=== PATIENT | female | born 1925 ===

== ENCOUNTER 2016-09-24 10:27 | Inpatient (IN) | payer MEDICARE, MEDICAID ==
[2016-09-24 11:38] LABS: BASO % 0.4 % (0.0-2.0); EOS # 0.1 K/uL (0.0-0.7); EOS % 0.5 % (0.0-4.0); HEMATOCRIT 35.9 % (34.0-47.0); LYMPH # 1.2 K/uL (1.0-4.3); LYMPH % 11.3 % (20.0-40.0); MEAN CELL VOLUME 89.2 fl (81.0-99.0); MEAN CORPUSCULAR HEMOGLOBIN 29.4 pg (27.0-31.0); MEAN CORPUSCULAR HGB CONC 32.9 g/dL (33.0-37.0); MONO # 0.5 K/uL (0.0-0.8); MONO % 5.1 % (0.0-10.0); NEUT # 8.8 K/uL (1.8-7.0); NEUT % 82.7 % (50.0-75.0); RED CELL DISTRIBUTION WIDTH 14.8 % (11.5-14.5); WHITE BLOOD COUNT 10.7 K/uL (4.8-10.8)
[2016-09-24 11:45] LABS: VENOUS BLOOD GAS BASE EXCESS 4.3 mmol/L (0.0-2.0); VENOUS BLOOD GAS PCO2 59 mmHg (40-60); VENOUS BLOOD PH 7.34 (7.32-7.43)
--- NOTE | 2016-09-24 11:48 | ED PDOC ---
HPI: General Adult Time Seen by Provider: 09/24/16 10:57 Chief Complaint (Nursing): Abnormal Skin Integrity Chief Complaint (Provider): Boil on Right Buttock History Per: Patient History/Exam Limitations: no limitations Onset/Duration Of Symptoms: Days (10 days) Have you had recent travel within the past 21 days to any of the following countries: [place], [place], [place] or [place]?: No Current Symptoms Are (Timing): Still Present Additional Complaint(s): Kizzy Cervantes, an 89 year old female, presents to the ED for a boil on her right buttock x10 days. The patient states that the pain has gotten worse and the boil itself has gotten bigger. Her family states that she has been dizzy over the last few days and her blood pressure was low. Because of this this the patient was taken to see her retread builder, who reduced the dosage of her blood pressure medication. Denies fever, diarrhea, vomiting. PMD: Speech Clinician: Dr. Diaz Past Medical History Reviewed: Historical Data, Nursing Documentation, Vital Signs Vital Signs: Last Vital Signs Temp 99.1 F 09/24/16 15:34 Pulse 81 09/24/16 15:34 Resp 18 09/24/16 15:34 BP 140/61 09/24/16 15:34 Pulse Ox 100 09/24/16 15:34 - Medical History PMH: Cardia Arrhythmia (pacemaker), Diabetes, Gastritis, HTN, Hyperlipidemia, Hyperthyroidism - Surgical History Surgical History: Appendectomy, Pacemaker (lt.) - Family History Family History: States: Unknown Family Hx - Immunization History Hx Tetanus Toxoid Vaccination: No Hx Influenza Vaccination: No Hx Pneumococcal Vaccination: No - Home Medications Home Medications: Ambulatory Orders Medication Instructions Recorded Ferrous Sulfate [Ferosul] 325 mg PO SUTUTHSA 09/24/16 Insulin Glargine, Recombina 30 unit SC HS 09/24/16 [Lantus] Multivitamin [Multi-Vitamin Daily] 1 tab PO DAILY 09/24/16 SITagliptin [Januvia] 100 mg PO DAILY 09/24/16 Simvastatin [Zocor] 20 mg PO DAILY 09/24/16 Valsartan/Hydrochlorothiazide 1 tab PO DAILY 09/24/16 [Valsartan-Hctz 80-12.5 mg Tab] Zaleplon [Sonata] 5 mg PO HS PRN 09/24/16 glyBURIDE [Micronase] 5 mg PO BID 09/24/16 - Allergies Allergies/Adverse Reactions: Allergies Allergy/AdvReac Type Severity Reaction Status Date / Time Penicillins Allergy RASH Verified 09/24/16 10:48 Review of Systems Constitutional: Negative for: Fever Gastrointestinal: Negative for: Vomiting, Diarrhea Skin: Positive for: Other (painful boil on right buttock.) Physical Exam - Reviewed Nursing Documentation Reviewed: Yes Vital Signs Reviewed: Yes - Physical Exam Appears: Positive for: Non-toxic, No Acute Distress Head Exam: Positive for: ATRAUMATIC, NORMOCEPHALIC Skin: Positive for: Normal Color, Warm, Dry Eye Exam: Positive for: Normal appearance, EOMI, PERRL ENT: Positive for: Normal ENT Inspection Neck: Positive for: Normal, Painless ROM, Supple Cardiovascular/Chest: Positive for: Regular Rate, Rhythm, Chest Non Tender. Negative for: Tachycardia Respiratory: Positive for: Normal Breath Sounds. Negative for: Wheezing, Respiratory Distress Gastrointestinal/Abdominal: Positive for: Normal Exam, Bowel Sounds, Soft. Negative for: Tenderness, Guarding, Rebound Back: Positive for: Other (Swelling and Induration to right buttock; 10m boil with opening in the center that is draining purulent discharge.). Negative for : Normal Inspection (Right buttock is warm and tender to palpation.) Neurologic/Psych: Positive for: Alert, Oriented, Gait - Laboratory Results Result Diagrams: 09/24/16 11:30 09/24/16 11:30 - ECG O2 Sat by Pulse Oximetry: 99 (RA) Pulse Ox Interpretation: Normal Medical Decision Making Medical Decision Makin:57 Initial impression: 89 year old female presenting with abscess with cellulitis of right buttock and dizziness secondary to hypotension Initial Plan: * Venous Blood Gas * Comp metabolic Panel * CBC * Partial Thromboplstin * Prothrombin time * Blood culture * wound culture * Reevaluation * clindamycin 600 mg IV 11:40 Plan also includes IND of the abscess as well as IV antibiotics. Patient will also be admitted to hospital for IV antibiotics. [address] Powell who requests Dr Torres on consult. Scribe Attestation Documented by Cherri Elias acting as a scribe for Mago Graham MD. Provider Attestation: All medical record entries made by the Scribe were at my direction and personally dictated by me. I have reviewed the chart and agree that the record accurately reflects my personal performance of the history, physical exam, medical decision making, and the department course for this patient. I have also personally directed, reviewed, and agree with the discharge instructions and disposition. Disposition - Clinical Impression Clinical Impression: Cellulitis and abscess of buttock, Hyperglycemia due to type 2 diabetes mellitus, Dizziness - Patient ED Disposition Is Patient to be Admitted: Yes Discussed With : Isael Magana Doctor Will See Patient In The: ED Counseled Patient/Family Regarding: Studies Performed, Diagnosis - Disposition Disposition Time: 13:00 Condition: FAIR - Pt Status Changed To: Hospital Disposition Of: Observation - POA Present On Arrival: Poor Glycemic Control
[2016-09-24 11:51] LABS: BILIRUBIN,TOTAL 0.7 mg/dl (0.2-1.3)
[2016-09-24 11:52] LABS: ALB/GLOB RATIO 0.7 (1.0-2.1); CALCIUM 9.9 mg/dL (8.4-10.2); TOTAL PROTEIN 8.9 G/DL (6.3-8.2)
[2016-09-24 11:54] LABS: PARTIAL THROMBOPLASTIN TIME 28.4 Seconds (25.6-37.1)
[2016-09-24] MEDS ORDERED: Clindamycin 600 MG in Sodium Chloride 0.9% 100 ML IVPB STA (11:59)
[2016-09-24] MEDS ORDERED: Sodium Chloride 0.9% 1,000 ML IV STA (12:00)
[2016-09-24] MEDS ORDERED: Insulin Regular 100 units/ml IV STA ×2 (12:00→14:58)
[2016-09-24] MEDS ORDERED: Insulin Regular 100 units/ml ONE ×2 (12:33→15:16)
[2016-09-24] MEDS ORDERED: Lidocaine 1% Inj (20ml) ONE (13:24)
[2016-09-24] MEDS ORDERED: Lidocaine 1% Inj (20ml) IJ ONE (13:30)
[2016-09-24] MEDS ORDERED: Vancomycin 1 g Inj ONE (15:29)
--- NOTE | 2016-09-24 15:31 | CP.PCM.HP ---
History of Present Illness - History of Present Illness History of Present Illness: 89 YO w/ PMH of RI x 3 in 2004, DM II, HTN presents to the ER for pain and swelling in her right gluteal region. It started 10 days ago and has progressivly getting worse to the point that she has trouble sleeping on the area. For the last day or two she started feeling dizzy and when the family checked her blood pressure they said it was low 90/50 while sitting. Denies any falls or trauma to head. Dr. Diaz is her psychological assistant and her dose was recently decreased from Valsartan 320 to 80. She has been compliant w/ all her medications. Denies any fever, chills, nausea, vomiting, chest pain or SOB. Patient denies any previous history of similar swellings or skin abnormalities. - Attempted to drain abscess at bedside w/ Dr. Graham using sterile technique , with chaparone in room. Abscess is quite large w/ induration extending close to rectum, was not able to adequately drain do to pt's pain level despite doing procedure after morphine and local anesthesia w/ lidocaine. Surgery consult has been placed PMH: HTN, HLD, RI x 3 in 2004 w/ pacemaker placement PSH: Cath in 2004 and pacemaker placement Allergy: Penicillin Medicine: Valsartan/HTZ 80/12.5, Glyburide 5 mg BID, Lantus 10 30 units daily, Junuvia 100mg daily. F/H: unknown Metallurgy Teacher: Dr. Diaz PMD: Lindsay Present on Admission - Present on Admission Any Indicators Present on Admission: No Review of Systems - Review of Systems All systems: reviewed and no additional remarkable complaints except Past Patient History - Past Social History Smoking Status: Never Smoked - CARDIAC Hx Cardia Arrhythmia: Yes (pacemaker) Hx Hypertension: Yes Hx Pacemaker: Yes (lt.) - ENDOCRINE/METABOLIC Hx Hyperthyroidism: Yes - GASTROINTESTINAL Hx Gastritis: Yes - PSYCHIATRIC Hx Substance Use: No - SURGICAL HISTORY Hx Appendectomy: Yes - ANESTHESIA Hx Anesthesia: Yes Hx Anesthesia Reactions: No Meds Allergies/Adverse Reactions: Allergies Allergy/AdvReac Type Severity Reaction Status Date / Time Penicillins Allergy RASH Verified 09/24/16 10:48 Physical Exam - Constitutional Appears: No Acute Distress - Head Exam Head Exam: NORMAL INSPECTION, NORMOCEPHALIC - Eye Exam Eye Exam: EOMI, Normal appearance Pupil Exam: NORMAL ACCOMODATION, PERRL - ENT Exam ENT Exam: Mucous Membranes Moist - Respiratory Exam Respiratory Exam: Clear to Auscultation Bilateral, NORMAL BREATHING PATTERN. absent: Rales, Rhonchi, Wheezes - Cardiovascular Exam Cardiovascular Exam: REGULAR RHYTHM, +S1, +S2 - GI/Abdominal Exam GI & Abdominal Exam: Normal Bowel Sounds, Soft. absent: Tenderness - Extremities Exam Extremities exam: Positive for: normal inspection. Negative for: calf tenderness - Neurological Exam Neurological exam: Alert, Oriented x3 - Psychiatric Exam Psychiatric exam: Normal Affect, Normal Mood - Skin Additional comments: Swelling and induration on the right butock, 10 cm in size w/ induration extending close to the rectum, draining purulent discharge. Tender on palpation Results - Vital Signs Recent Vital Signs: Last Vital Signs Temp 98.8 F 09/24/16 10:33 Pulse 88 09/24/16 13:52 Resp 18 09/24/16 10:33 BP 123/84 09/24/16 13:52 Pulse Ox 99 09/24/16 11:57 - Labs Result Diagrams: 09/24/16 11:30 09/24/16 11:30 Assessment & Plan - Assessment and Plan (Free Text) Assessment: 89 YO F/ W/ h/o DM II, HTN presents to the ER w/ abscess of the right buttock and dizziness secondary to hypertension 1) Abscess and cellulitis of right buttock - Attempted to drain at bedside in ER, but do to the pain unable to continue. Surgery has been consulted. - CBC, CMP, VBG - PT/PTT - Blood Culture - Wound culture - Clindamycin 600 mg IVPB stat - Vancomycin 1gm IVPB 2) Dizziness ( currently resolved) - IV fluids - Monitor Blood pressure 3) DM II insulin dependent - Glyburide 5mg BID, Levimir 10 unit SCHS, Junuvia 100mg Daily - Currently on insulin sliding scale - Hypoglycemia protocol in place 4) HTN - Valsartan/HTZ 80/125 ( Hold currently) 5) prophlaxis - SCD, Lovenox 30 SC - Pantoprazole -
[2016-09-24] MEDS ORDERED: Dextrose 50% SYRINGE Inj (50 ml) IV PRN (16:25)
[2016-09-24] MEDS ORDERED: Glucagon Recombinant 1 mg Inj IM PRN (16:25)
[2016-09-24] MEDS ORDERED: Oxycodone/Acetaminophen 5/325 mg Tab PO PRN (16:40)
[2016-09-24] MEDS ORDERED: Sodium Chloride 0.9% 1,000 ML IV SCH (16:45)
--- NOTE | 2016-09-24 17:29 | CP.PCM.CON ---
<Abbey Barahona - Last Filed: 09/24/16 17:23> History of Present Illness - History of Present Illness History of Present Illness: General Surgery consult note for Dr. Jackson Consulted for: Gluteal abscess Patient is an 89 y/o Female with PMH of IDDM, CAD with MIx3 and pacemaker, and HTN who presented to the ER for pain and swelling in her left gluteal area for 1 week duration. Patient's daughter said that patient initially refused to come the hospital but did not get better so they brought her in. Patient denies any fevers, chills, diarrhea, constipation, melena, hematochezia, nausea, vomiting, or any other symptoms. The ER physician performed a bedside I&D but patient did not tolerate a full exploration and so it is inadequately drained at this time. This is the patient's first episode like this. Patient's glucose was >500 on presentation, indicating her diabetes is poorly controlled. afebrile, non-tachycardic WBC: wnl PMH: IDDM, CAD with MIx3, pacemaker, HTN PSH: pacemaker, cardiac cath 2004 All: PCN Review of Systems - Review of Systems All systems: reviewed and no additional remarkable complaints except (as per HPI ) - Constitutional Constitutional: absent: Chills, Fever - Cardiovascular Cardiovascular: absent: Chest Pain, Chest Pain at Rest, Dyspnea - Respiratory Respiratory: absent: Cough, Dyspnea - Gastrointestinal Gastrointestinal: absent: Abdominal Pain, Melena, Nausea, Vomiting - Integumentary Integumentary: Erythema, New Lesions, Skin Pain, Swelling Past Patient History - Past Medical History & Family History Past Medical History?: Yes - Past Social History Smoking Status: Never Smoked - CARDIAC Hx Cardia Arrhythmia: Yes (pacemaker) Hx Hypertension: Yes Hx Pacemaker: Yes (lt.) - PULMONARY Hx Respiratory Disorders: No - NEUROLOGICAL Hx Neurological Disorder: No - HEENT Hx HEENT Problems: No - RENAL Hx Chronic Kidney Disease: No - ENDOCRINE/METABOLIC Hx Hyperthyroidism: Yes - HEMATOLOGICAL/ONCOLOGICAL Hx Blood Disorders: No - INTEGUMENTARY Hx Dermatological Problems: No - MUSCULOSKELETAL/RHEUMATOLOGICAL Hx Musculoskeletal Disorders: No - GASTROINTESTINAL Hx Gastritis: Yes - GENITOURINARY/GYNECOLOGICAL Hx Genitourinary Disorders: No - PSYCHIATRIC Hx Substance Use: No - SURGICAL HISTORY Hx Appendectomy: Yes - ANESTHESIA Hx Anesthesia: Yes Hx Anesthesia Reactions: No Meds Allergies/Adverse Reactions: Allergies Allergy/AdvReac Type Severity Reaction Status Date / Time Penicillins Allergy RASH Verified 09/24/16 10:48 - Medications Medications: Current Medications Acetaminophen (Tylenol 325mg Tab) 650 mg PO Q6 PRN PRN Reason: Pain, Mild (1-3) Acetaminophen (Tylenol 325mg Tab) 650 mg PO Q6 PRN PRN Reason: Fever >100.4 F Dextrose (Dextrose 50% Inj) 0 ml IV STAT PRN; Protocol PRN Reason: Hyglycemia Protocol Dextrose (Glutose 15) 0 gm PO ONCE PRN; Protocol PRN Reason: Hypoglycemia Protocol Docusate Sodium (Colace) 100 mg PO BID [facility] Enoxaparin Sodium (Lovenox) 30 mg SC DAILY [facility] PRN Reason: Protocol Glucagon (Glucagen Diagnostic Kit) 0 mg IM STAT PRN; Protocol PRN Reason: Hypoglycemia Protocol Glyburide (Micronase) 5 mg PO BRK [facility] Sodium Chloride (Sodium Chloride 0.9%) 1,000 mls @ 100 mls/hr IV .Q10H [facility] Insulin Detemir (Levemir) 10 units SC HS [facility] Morphine Sulfate (Morphine) 1 mg IVP Q6 PRN PRN Reason: Pain, severe (8-10) Last Admin: 09/24/16 17:20 Dose: 1 mg Ondansetron HCl (Zofran Inj) 4 mg IVP Q6 PRN PRN Reason: Nausea/Vomiting Oxycodone/Acetaminophen (Percocet 5/325 Mg Tab) 1 tab PO Q4 PRN PRN Reason: Pain, moderate (4-7) Stop: 09/27/16 16:41 Pantoprazole Sodium (Protonix Ec Tab) 40 mg PO DAILY [facility] Sitagliptin Phosphate (Januvia) 25 mg PO DAILY [facility] Physical Exam - Constitutional Appears: Non-toxic, In Acute Distress - Head Exam Head Exam: ATRAUMATIC, NORMOCEPHALIC - Eye Exam Eye Exam: Normal appearance. absent: Conjunctival injection, Scleral icterus - ENT Exam ENT Exam: Mucous Membranes Moist, Normal Oropharynx - Respiratory Exam Respiratory Exam: NORMAL BREATHING PATTERN. absent: Accessory Muscle Use, Respiratory Distress - Cardiovascular Exam Cardiovascular Exam: RRR - GI/Abdominal Exam GI & Abdominal Exam: absent: Distended - Rectal Exam Rectal Exam: NORMAL INSPECTION. absent: Bloody Stool Additional comments: Solid, soft stool in rectal vault, dark green/black in color. No palpable mass or fluctuance, normal rectal tone. No gross blood or purulence - Extremities Exam Extremities exam: Positive for: pedal pulses present. Negative for: calf tenderness, pedal edema - Neurological Exam Neurological exam: Alert, Oriented x3 - Psychiatric Exam Psychiatric exam: Anxious, Normal Affect - Skin Skin Exam: Dry, Warm Additional comments: Area of erythema and swelling in the skin of the left glute approximatley 4cm in diameter with a 1cm diameter incision with purulent fluid drainage. Severely tender to palpation Results - Vital Signs Recent Vital Signs: Last Vital Signs Temp 99.1 F 09/24/16 16:12 Pulse 81 09/24/16 16:12 Resp 18 09/24/16 16:12 BP 140/61 09/24/16 16:12 Pulse Ox 99 09/24/16 15:57 - Labs Result Diagrams: 09/24/16 11:30 09/24/16 11:30 Assessment & Plan - Assessment and Plan (Free Text) Assessment: 89F with PMH of CAD with NE, IDDM poorly controlled, who presents with abscess of the left gluteal subcutaneous tissue -afebrile, VSS -WBC wnl -Rectal exam not suggestive of rectal involvement Plan: -f/u CT scan to r/o rectal involvement -I&D in the OR in the AM -Pre-operative clearance per medical team -IV antibiotics per primary -NPO after midnight -analgesics Discussed with Dr Renetta Barahona, PGY1 - Date & Time Date: 09/24/16 Time: 17:45 <Poli Jackson - Last Filed: 09/24/16 19:37> History of Present Illness - History of Present Illness History of Present Illness: Patient was seen and examined at the bedside. Agree with resident's note above except patient's pathology is on the right buttocks Meds - Medications Medications: Current Medications Acetaminophen (Tylenol 325mg Tab) 650 mg PO Q6 PRN PRN Reason: Pain, Mild (1-3) Acetaminophen (Tylenol 325mg Tab) 650 mg PO Q6 PRN PRN Reason: Fever >100.4 F Dextrose (Dextrose 50% Inj) 0 ml IV STAT PRN; Protocol PRN Reason: Hyglycemia Protocol Dextrose (Glutose 15) 0 gm PO ONCE PRN; Protocol PRN Reason: Hypoglycemia Protocol Docusate Sodium (Colace) 100 mg PO BID T[facility] Last Admin: 09/24/16 18:33 Dose: 100 mg Glucagon (Glucagen Diagnostic Kit) 0 mg IM STAT PRN; Protocol PRN Reason: Hypoglycemia Protocol Glyburide (Micronase) 5 mg PO BRK [facility] Sodium Chloride (Sodium Chloride 0.9%) 1,000 mls @ 100 mls/hr IV .Q10H [facility] Insulin Detemir (Levemir) 10 units SC HS [facility] Morphine Sulfate (Morphine) 1 mg IVP Q6 PRN PRN Reason: Pain, severe (8-10) Last Admin: 09/24/16 17:20 Dose: 1 mg Ondansetron HCl (Zofran Inj) 4 mg IVP Q6 PRN PRN Reason: Nausea/Vomiting Oxycodone/Acetaminophen (Percocet 5/325 Mg Tab) 1 tab PO Q4 PRN PRN Reason: Pain, moderate (4-7) Stop: 09/27/16 16:41 Pantoprazole Sodium (Protonix Ec Tab) 40 mg PO DAILY [facility] Sitagliptin Phosphate (Januvia) 25 mg PO DAILY [facility] Results - Vital Signs Recent Vital Signs: Last Vital Signs Temp 99.1 F 09/24/16 16:12 Pulse 81 09/24/16 16:12 Resp 20 09/24/16 18:05 BP 140/61 09/24/16 16:12 Pulse Ox 99 09/24/16 15:57 - Labs Result Diagrams: 09/24/16 11:30 09/24/16 11:30 - Imaging and Cardiology CT scan - pelvis Status: Image reviewed by me, Report reviewed by me Assessment & Plan - Assessment and Plan (Free Text) Assessment: 89 y.o. female with right buttocks abscess Plan: - NPO after midnight - Continue antibiotics - Pain control - IV fluids after midnight - To OR tomorrow for I&D of the right buttocks abscess - Will follow
--- NOTE | 2016-09-24 18:52 | CT ---
PROCEDURE: CT abdomen pelvis dated 09/24/16 HISTORY: Left perianal buttock abscess COMPARISON: None. TECHNIQUE: Contiguous axial images of the abdomen and pelvis. Oral contrast was administered. No IV contrast given. Coronal and Sagittal reformats generated. Radiation dose: Total exam DLP = 398.1mGy-cm. This CT exam was performed using one or more of the following dose reduction techniques: Automated exposure control, adjustment of the mA and/or kV according to patient size, and/or use of iterative reconstruction technique. FINDINGS: LOWER THORAX: Mild bibasilar atelectasis. Heart size within range of normal. No significant elliptical shaped radiopaque density adjacent to the posterior margin of the esophagus at the EG junction of uncertain etiology. Questionable of old post surgical sequela. Clinical correlation recommended. LIVER: Liver exhibits normal size and attenuation pattern without mass collection or calcification. GALLBLADDER AND BILE DUCTS: Gallbladder is physiologically distended. Multiple tiny intraluminal gallbladder calculi. PANCREAS: The pancreas is slightly atrophic and fatty replaced. No obvious pancreatic mass collection or calcification. No significant pancreatic ductal dilatation. SPLEEN: Spleen exhibits normal size and attenuation pattern. ADRENALS: Slightly nodular appearing left adrenal gland versus small left adrenal nodule (10.4 mm. KIDNEYS AND URETERS: There are multiple vascular calcifications seen within both renal hilar regions. Note that the possibility of a few more discrete the nonobstructing calculi cannot completely excluded. No evidence of hydronephrosis. Mild vague infiltration changes seen in the perinephric fat left greater than right. BLADDER: Urinary bladder is physiologically distended. No evidence of intraluminal urinary bladder calculi. REPRODUCTIVE: Status post hysterectomy. APPENDIX: Appendix is not seen with complete certainty however no inflammatory changes right lower quadrant of the abdomen. BOWEL: Evaluation of the bowel is limited due to the lack of oral contrast. The stomach is incompletely distended which may account for thick-walled appearance. Visualized loops of small bowel exhibit normal contour and caliber. No evidence of acute mechanical small bowel obstruction. Evaluation of the large bowel demonstrates dry stool and air throughout the colon. Rule out mild constipation. No definitive abnormal mural wall thickening. PERITONEUM: Unremarkable. No fluid collection. No free air. LYMPH NODES: Unremarkable. No enlarged lymph nodes. VASCULATURE: Unremarkable. No aortic aneurysm. BONES: No fracture or destructive lesion. OTHER FINDINGS: There is a right parasagittal soft tissue mass density (measuring approximately 3.8 trans x 2.1 cm AP within the subcutaneous tissues right medial buttock (just below the skin surface) and consistent with what probably represents localized cellulitis or phlegmon. Overlying skin thickening is present as well. There also infiltration changes seen in the lateral subcutaneous tissues of the right buttock likely representing a cellulitis. No definitive drainable fluid collections or subcutaneous emphysema. . IMPRESSION: There is a right parasagittal soft tissue mass density (measuring approximately 3.8 trans x 2.1 cm AP within the subcutaneous tissues right medial buttock (just below the skin surface) and consistent with what probably represents localized cellulitis or phlegmon. Overlying skin thickening is present as well. There also infiltration changes seen in the lateral subcutaneous tissues of the right buttock likely representing a cellulitis. No definitive drainable fluid collections or subcutaneous emphysema case discussed with Dr. Graham at approximately 5:41 p.m. with written down and read back verification.
[2016-09-24 20:38] LABS: PARTIAL THROMBOPLASTIN TIME 28.3 Seconds (25.6-37.1)
--- NOTE | 2016-09-24 20:58 | CARD ---
APPROVED REPORT EKG Measurement Heart [id number] <Conclusion> Sinus rhythm with 1st degree AV block Otherwise normal ECG
[2016-09-24] MEDS: Insulin Detemir 100 Units/ml Inj SC SCH (21:35)
[2016-09-25] MEDS: Insulin Regular 100 units/ml SC SCH ×4 (06:59→21:30)
[2016-09-25 07:34] LABS: BASO % 0.5 % (0.0-2.0); EOS # 0.2 K/uL (0.0-0.7); EOS % 2.2 % (0.0-4.0); HEMATOCRIT 30.3 % (34.0-47.0); LYMPH # 1.7 K/uL (1.0-4.3); LYMPH % 18.6 % (20.0-40.0); MEAN CELL VOLUME 88.5 fl (81.0-99.0); MEAN CORPUSCULAR HEMOGLOBIN 29.4 pg (27.0-31.0); MEAN CORPUSCULAR HGB CONC 33.2 g/dL (33.0-37.0); MEAN PLATELET VOLUME 10.2 fl (7.2-11.7); MONO # 0.6 K/uL (0.0-0.8); MONO % 6.3 % (0.0-10.0); NEUT # 6.6 K/uL (1.8-7.0); NEUT % 72.4 % (50.0-75.0); NRBC % 0.1 % (0.0-0.0); RED CELL DISTRIBUTION WIDTH 14.9 % (11.5-14.5); WHITE BLOOD COUNT 9.1 K/uL (4.8-10.8)
[2016-09-25 07:47] LABS: CALCIUM 8.9 mg/dL (8.4-10.2); POTASSIUM 4.4 MMOL/L (3.6-5.0)
[2016-09-25 07:56] LABS: RBC URINE 19 /hpf (0-3); URINE BACTERIA OCC (<OCC); URINE BILIRUBIN NEGATIVE (NEGATIVE); URINE BLOOD SMALL (NEGATIVE); URINE COLOR YELLOW (YELLOW); URINE GLUCOSE (UA) >=500 mg/dL (Normal); URINE KETONE NEGATIVE (NEGATIVE); URINE LEUKOCYTE ESTERASE LARGE Leu/uL (Negative); URINE PROTEIN NEGATIVE (NEGATIVE); URINE UROBILINOGEN 0.2-1.0 mg/dL (0.2-1.0); WBC URINE 64 /hpf (0-5)
--- NOTE | 2016-09-25 08:18 | CP.PCM.PN ---
Subjective - Date & Time of Evaluation Date of Evaluation: 09/25/16 Time of Evaluation: 07:00 - Subjective Subjective: 89 Y/O PMH, DM2, CAD was seen at bedside resting comfortably. She states the pain is less then yesterday, but is still uncomfotable. She has been NPO over night. Denies any fever, chills, nausea. She is scheduled for OR today for ID procedure as per surgery. Denies any dizziness, SOB, chest pain or palpitations. Objective - Vital Signs/Intake and Output Vital Signs (last 24 hours): Temp Pulse Resp BP Pulse Ox 97 F L 94 H 20 154/73 H 96 09/25/16 00:29 09/25/16 00:29 09/25/16 00:29 09/25/16 00:29 09/25/16 00:29 - Medications Medications: Current Medications Acetaminophen (Tylenol 325mg Tab) 650 mg PO Q6 PRN PRN Reason: Pain, Mild (1-3) Acetaminophen (Tylenol 325mg Tab) 650 mg PO Q6 PRN PRN Reason: Fever >100.4 F Dextrose (Dextrose 50% Inj) 0 ml IV STAT PRN; Protocol PRN Reason: Hyglycemia Protocol Dextrose (Glutose 15) 0 gm PO ONCE PRN; Protocol PRN Reason: Hypoglycemia Protocol Docusate Sodium (Colace) 100 mg PO BID [facility] Last Admin: 09/24/16 18:33 Dose: 100 mg Glucagon (Glucagen Diagnostic Kit) 0 mg IM STAT PRN; Protocol PRN Reason: Hypoglycemia Protocol Glyburide (Micronase) 5 mg PO BRK [facility] Last Admin: 09/24/16 19:38 Dose: 5 mg Hydrochlorothiazide (Microzide) 12.5 mg PO DAILY [facility] Sodium Chloride (Sodium Chloride 0.9%) 1,000 mls @ 100 mls/hr IV .Q10H [facility] Last Admin: 09/25/16 00:14 Dose: 100 mls/hr Insulin Detemir (Levemir) 10 units SC HS [facility] Last Admin: 09/24/16 21:35 Dose: 10 unit Insulin Human Regular (Humulin R) 0 units SC ACHS [facility] PRN Reason: Protocol Last Admin: 09/25/16 06:59 Dose: 2 units Morphine Sulfate (Morphine) 1 mg IVP Q6 PRN PRN Reason: Pain, severe (8-10) Last Admin: 09/24/16 17:20 Dose: 1 mg Ondansetron HCl (Zofran Inj) 4 mg IVP Q6 PRN PRN Reason: Nausea/Vomiting Oxycodone/Acetaminophen (Percocet 5/325 Mg Tab) 1 tab PO Q4 PRN PRN Reason: Pain, moderate (4-7) Stop: 09/27/16 16:41 Pantoprazole Sodium (Protonix Ec Tab) 40 mg PO DAILY [facility] Sitagliptin Phosphate (Januvia) 25 mg PO DAILY [facility] Last Admin: 09/24/16 19:39 Dose: 25 mg Valsartan (Diovan) 80 mg PO DAILY [facility] - Labs Labs: 09/25/16 06:45 09/25/16 06:45 PT 13.6 Seconds (9.8-13.1) H 09/24/16 20:18 INR 1.2 (0.9-1.2) 09/24/16 20:18 APTT 28.3 Seconds (25.6-37.1) 09/24/16 20:18 - Constitutional Appears: No Acute Distress - Head Exam Head Exam: NORMAL INSPECTION, NORMOCEPHALIC - Eye Exam Eye Exam: Normal appearance - ENT Exam ENT Exam: Mucous Membranes Moist - Respiratory Exam Respiratory Exam: Clear to Ausculation Bilateral, NORMAL BREATHING PATTERN - Cardiovascular Exam Cardiovascular Exam: REGULAR RHYTHM, +S1, +S2 - GI/Abdominal Exam GI & Abdominal Exam: Soft, Normal Bowel Sounds. absent: Tenderness - Neurological Exam Neurological Exam: Alert, Awake, Oriented x3 - Skin Additional comments: Draining abscess on right buttock Assessment and Plan - Assessment and Plan (Free Text) Assessment: 89 YO F/ W/ h/o DM II, HTN presents to the ER w/ abscess of the right buttock and dizziness secondary to hypertension 1) Perirectal abscess and cellulitis - Attempted to drain at bedside in ER, but do to the pain unable to continue. Surgery has been consulted. - CT showed right parasagittal soft tissue swelling 3.8 x 2.1 cm AP within the subcutaneous tissue right medial buttock - NPO - Pain controlled w/ pain meds - Schedule for I&D in the OR today. Patient is low to moderate risk for any surgical procedure. - PT/PTT: 13.6/ 28.3 - Blood Culture - Wound culture: Gram +ve culture - Clindamycin 600 mg and Vancomycin IVPB GIVEN in ER 2) DM II insulin dependent - Glyburide 5mg BID, Levimir 10 unit SCHS, Junuvia 100mg Daily - Currently on insulin sliding scale - Hypoglycemia protocol in place 3) HTN - EKG : 2st degree AV block consistent with previous EKG - Restart Valsartan/HTZ 80/12.5 - Monitor BP 4) Prophlaxis - SCD, Hold lovenox until surgery today - Pantoprazole
[2016-09-25] MEDS ORDERED: Enoxaparin 30 mg Syringe SC SCH (09:00)
[2016-09-25] MEDS ORDERED: Phenylephrine 10 mg/ml Inj ONE (10:22)
[2016-09-25] MEDS ORDERED: Propofol 10 mg/ml Inj (20 ML) ONE (10:27)
[2016-09-25] MEDS ORDERED: Lidocaine 2% PF (10 ml) Amp ONE (10:27)
[2016-09-25] MEDS ORDERED: Succinylcholine 200 mg/10 ml Inj IV ONE (10:27)
[2016-09-25] MEDS ORDERED: Lactated Ringer's 1,000 ML IV ONE (10:35)
[2016-09-25] MEDS ORDERED: Rocuronium 10 mg/ml (5 ml) ONE (10:49)
[2016-09-25] MEDS ORDERED: ePHEDrine 50 mg/ml Inj ONE (10:50)
[2016-09-25] MEDS ORDERED: Bupivacaine 0.5% Inj(30mL) ONE (10:53)
[2016-09-25] MEDS ORDERED: Neostigmine Methylsulfate 2 MG/2 ML ML IV ONE (10:58)
[2016-09-25] MEDS ORDERED: Esmolol 100 mg/10ml Inj IV ONE (11:06)
[2016-09-25] MEDS ORDERED: Bupivacaine 0.5% 50 ML IJ ONE (11:15)
--- NOTE | 2016-09-25 11:19 | PCM.SURG1 ---
Surgeon's Initial Post Op Note - Surgeon's Notes Surgeon: Dr. Jackson [employer] Officer: Dr. Barahona PGY1 Pre-Operative Diagnosis: Right Perirectal abscess Operative Findings: same Post-Operative Diagnosis: same Operation Performed: Incision and Drainage of Right Perirectal Abscess Specimen/Specimens Removed: culture Estimated Blood Loss: EBL {In ML}: 10 Blood Products Given: N/A Drains Used: No Drains Post-Op Condition: Good Date of Surgery/Procedure: 09/25/16 Time of Surgery/Procedure: 11:19
[2016-09-25] MEDS ORDERED: HYDROmorphone 0.5 mg/0.5 ml ISec ONE (11:29)
[2016-09-25] MEDS ORDERED: HYDROmorphone 0.5 mg/0.5 ml ISec IVP PRN (11:35)
--- NOTE | 2016-09-25 11:37 | PCM.SURG1 ---
Surgeon's Initial Post Op Note - Surgeon's Notes Surgeon: Dr. Jackson Walking Dragline Operator: Kenan Barahona, PGY1 Pre-Operative Diagnosis: Right Perirectal abcess Operative Findings: See full operative report Post-Operative Diagnosis: same Operation Performed: Incision and drainage of Right gaston-riectal abscess Specimen/Specimens Removed: wound culture Estimated Blood Loss: EBL {In ML}: 10 Date of Surgery/Procedure: 09/25/16 Time of Surgery/Procedure: 10:30
[2016-09-25] MEDS: Pantoprazole 40 mg EC Tab PO SCH (13:49)
[2016-09-25 16:12] VITALS: BMI 20.5
--- NOTE | 2016-09-25 16:53 | RAD ---
PROCEDURE: CHEST RADIOGRAPH, 1 VIEW HISTORY: preop clearance COMPARISON: None available. FINDINGS: LUNGS: Vague opacities both lung bases left more confluent and dense in appearance than the right side. Findings may represent atelectasis however developing infiltrate changes should be excluded followup radiographs PLEURA: No pneumothorax or pleural fluid seen. CARDIOVASCULAR: Cardiomegaly. . Calcification of the aortic knob. In situ bipolar pacemaker. OSSEOUS STRUCTURES: Minor multilevel degenerative spondylosis of the thoracic spine. Degenerative osteoarthritis both shoulder girdles of with what may with apparent soft tissue calcification adjacent to and overlying lateral aspect right humeral head consistent with calcific tendinitis or bursitis VISUALIZED UPPER ABDOMEN: Normal. OTHER FINDINGS: None. IMPRESSION: Vague opacities both lung bases left more confluent and dense in appearance than the right side. Findings may represent atelectasis however developing infiltrate changes should be excluded followup radiographs
[2016-09-25] MEDS: Insulin Detemir 100 Units/ml Inj SC SCH (21:51)
[2016-09-26] MEDS: Insulin Regular 100 units/ml SC SCH ×2 (06:35→12:00)
[2016-09-26 06:49] LABS: BASO # 0.1 K/uL (0.0-0.2); BASO % 0.6 % (0.0-2.0); EOS # 0.2 K/uL (0.0-0.7); EOS % 1.8 % (0.0-4.0); HEMATOCRIT 32.6 % (34.0-47.0); LYMPH # 1.8 K/uL (1.0-4.3); LYMPH % 20.3 % (20.0-40.0); MEAN CELL VOLUME 90.1 fl (81.0-99.0); MEAN CORPUSCULAR HEMOGLOBIN 28.9 pg (27.0-31.0); MEAN PLATELET VOLUME 9.7 fl (7.2-11.7); MONO # 0.6 K/uL (0.0-0.8); MONO % 6.4 % (0.0-10.0); NEUT # 6.2 K/uL (1.8-7.0); NEUT % 70.9 % (50.0-75.0); RED CELL DISTRIBUTION WIDTH 14.6 % (11.5-14.5); WHITE BLOOD COUNT 8.8 K/uL (4.8-10.8)
[2016-09-26 06:50] LABS: ALB/GLOB RATIO 0.7 (1.0-2.1); ALKALINE PHOSPHATASE 270 U/L (38-126); ALT/SGPT 51 U/L (9-52); AST/SGOT 39 U/L (14-36); BILIRUBIN,TOTAL 0.5 mg/dl (0.2-1.3); BLOOD UREA NITROGEN 18 mg/dl (7-17); CALCIUM 8.9 mg/dL (8.4-10.2); CARBON DIOXIDE 27 mmol/L (22-30); CHLORIDE 105 mmol/L (98-107); GFR AFRICAN-AMERICAN > 60; GLUCOSE,RANDOM 191 mg/dL (65-105); POTASSIUM 4.8 MMOL/L (3.6-5.0); SODIUM 138 mmol/l (132-148); TOTAL PROTEIN 7.4 G/DL (6.3-8.2)
[2016-09-26 07:37] VITALS: BP 176/74; PULSE 86; RESP 18; TEMP 98.8; O2SAT 97
[2016-09-26] MEDS: Pantoprazole 40 mg EC Tab PO SCH (08:22)
--- NOTE | 2016-09-26 11:29 | CP.PCM.PN ---
Subjective - Date & Time of Evaluation Date of Evaluation: 09/26/16 Time of Evaluation: 11:15 - Subjective Subjective: Patient was seen and examined at the bedside. Denies any gluteal pain, states that feels much better. Objective - Vital Signs/Intake and Output Vital Signs (last 24 hours): Temp Pulse Resp BP Pulse Ox 98.8 F 86 18 176/74 H 97 09/26/16 07:36 09/26/16 07:36 09/26/16 07:36 09/26/16 07:36 09/26/16 07:36 - Medications Medications: Current Medications Acetaminophen (Tylenol 325mg Tab) 650 mg PO Q6 PRN PRN Reason: Pain, Mild (1-3) Acetaminophen (Tylenol 325mg Tab) 650 mg PO Q6 PRN PRN Reason: Fever >100.4 F Dextrose (Dextrose 50% Inj) 0 ml IV STAT PRN; Protocol PRN Reason: Hyglycemia Protocol Dextrose (Glutose 15) 0 gm PO ONCE PRN; Protocol PRN Reason: Hypoglycemia Protocol Docusate Sodium (Colace) 100 mg PO BID [facility] [place] Last Admin: 09/26/16 08:22 Dose: 100 mg Glucagon (Glucagen Diagnostic Kit) 0 mg IM STAT PRN; Protocol PRN Reason: Hypoglycemia Protocol Glyburide (Micronase) 5 mg PO BRK [facility] [place] Last Admin: 09/26/16 08:22 Dose: 5 mg Hydrochlorothiazide (Microzide) 12.5 mg PO DAILY [facility] [place] Last Admin: 09/26/16 08:22 Dose: 12.5 mg Sodium Chloride (Sodium Chloride 0.9%) 1,000 mls @ 100 mls/hr IV .Q10H [facility] [place] Last Admin: 09/25/16 00:14 Dose: 100 mls/hr Vancomycin HCl 1 gm/ Sodium (Chloride) 250 mls @ 166.667 mls/hr IVPB Q12H [facility] [place] Last Admin: 09/25/16 23:15 Dose: 166.667 mls/hr Insulin Detemir (Levemir) 10 units SC HS [facility] [place] Last Admin: 09/25/16 21:51 Dose: 10 unit Insulin Human Regular (Humulin R) 0 units SC ACHS [facility] PRN Reason: Protocol Last Admin: 09/26/16 06:35 Dose: 2 units Morphine Sulfate (Morphine) 1 mg IVP Q6 PRN PRN Reason: Pain, severe (8-10) Last Admin: 09/26/16 06:53 Dose: 1 mg Ondansetron HCl (Zofran Inj) 4 mg IVP Q6 PRN PRN Reason: Nausea/Vomiting Oxycodone/Acetaminophen (Percocet 5/325 Mg Tab) 1 tab PO Q4 PRN PRN Reason: Pain, moderate (4-7) Stop: 09/27/16 16:41 Last Admin: 09/25/16 21:50 Dose: 1 tab Pantoprazole Sodium (Protonix Ec Tab) 40 mg PO DAILY [facility] [place] Last Admin: 09/26/16 08:22 Dose: 40 mg Sitagliptin Phosphate (Januvia) 25 mg PO DAILY [facility] [place] Last Admin: 09/26/16 08:22 Dose: 25 mg Valsartan (Diovan) 80 mg PO DAILY [facility] [place] Last Admin: 09/26/16 08:22 Dose: 80 mg - Labs Labs: 09/26/16 05:55 09/26/16 05:55 PT 13.6 Seconds (9.8-13.1) H 09/24/16 20:18 INR 1.2 (0.9-1.2) 09/24/16 20:18 APTT 28.3 Seconds (25.6-37.1) 09/24/16 20:18 - Constitutional Appears: Well, Non-toxic, No Acute Distress - Head Exam Head Exam: ATRAUMATIC, NORMAL INSPECTION, NORMOCEPHALIC - Eye Exam Eye Exam: EOMI, Normal appearance, PERRL Pupil Exam: NORMAL ACCOMODATION, PERRL - ENT Exam ENT Exam: Mucous Membranes Moist, Normal Exam - Neck Exam Neck Exam: Full ROM, Normal Inspection - Respiratory Exam Respiratory Exam: NORMAL BREATHING PATTERN - Cardiovascular Exam Cardiovascular Exam: REGULAR RHYTHM, +S1, +S2 - GI/Abdominal Exam GI & Abdominal Exam: Soft, Normal Bowel Sounds - Rectal Exam Additional comments: right gluteal incision clean, no erythema, no drainage, very mildly tender to palpation - Extremities Exam Extremities Exam: Full ROM, Normal Inspection - Back Exam Back Exam: NORMAL INSPECTION - Neurological Exam Neurological Exam: Alert, Awake - Psychiatric Exam Psychiatric exam: Normal Affect, Normal Mood - Skin Skin Exam: Dry, Intact, Normal Color, Warm Assessment and Plan - Assessment and Plan (Free Text) Assessment: 89 y.o. female s/p I&D of the right gluteal abscess Plan: - pain control - Glycemic control - Continue antibiotics - Patient is clear for discharge home from the surgical stand point - Patient will follow up with me in the office in 10 days to 2 weeks for post- op visit
--- NOTE | 2016-09-26 12:25 | CP.PCM.DIS ---
<Tim Zelaya - Last Filed: 09/26/16 19:06> Provider - Provider Date of Admission: 09/25/16 17:04 Attending physician: Isael Magana MD Consults: See Dr. Medina in 10 days for post op wound check - f/U w/ Dr. Powell PMD to follow up with DM management and f/u on the post op I and D Time Spent in preparation of Discharge (in minutes): 30 Diagnosis - Discharge Diagnosis (1) Gluteal abscess Status: Acute Hospital Course - Lab Results Lab Results: Most Recent Lab Values WBC 8.8 K/uL (4.8-10.8) 09/26/16 05:55 RBC 3.61 Mil/uL (3.80-5.20) L 09/26/16 05:55 Hgb 10.4 g/dL (12.0-16.0) L 09/26/16 05:55 Hct 32.6 % (34.0-47.0) L 09/26/16 05:55 MCV 90.1 fl (81.0-99.0) 09/26/16 05:55 MCH 28.9 pg (27.0-31.0) 09/26/16 05:55 MCHC 32.0 g/dL (33.0-37.0) L 09/26/16 05:55 RDW 14.6 % (11.5-14.5) H 09/26/16 05:55 Plt Count 146 K/uL (130-400) 09/26/16 05:55 MPV 9.7 fl (7.2-11.7) 09/26/16 05:55 Neut % (Auto) 70.9 % (50.0-75.0) 09/26/16 05:55 Lymph % (Auto) 20.3 % (20.0-40.0) 09/26/16 05:55 [place] % (Auto) 6.4 % (0.0-10.0) 09/26/16 05:55 Eos % (Auto) 1.8 % (0.0-4.0) 09/26/16 05:55 Baso % (Auto) 0.6 % (0.0-2.0) 09/26/16 05:55 Neut # 6.2 K/uL (1.8-7.0) 09/26/16 05:55 Lymph # 1.8 K/uL (1.0-4.3) 09/26/16 05:55 [place] # 0.6 K/uL (0.0-0.8) 09/26/16 05:55 Eos # 0.2 K/uL (0.0-0.7) 09/26/16 05:55 Baso # 0.1 K/uL (0.0-0.2) 09/26/16 05:55 PT 13.6 Seconds (9.8-13.1) H 09/24/16 20:18 INR 1.2 (0.9-1.2) 09/24/16 20:18 APTT 28.3 Seconds (25.6-37.1) 09/24/16 20:18 pO2 14 mm/Hg (30-55) L 09/24/16 11:16 VBG pH 7.34 (7.32-7.43) 09/24/16 11:16 VBG pCO2 59 mmHg (40-60) 09/24/16 11:16 VBG HCO3 26.1 mmol/L 09/24/16 11:16 VBG Total CO2 33.6 mmol/L (22-28) H 09/24/16 11:16 VBG O2 Sat (Calc) 20.5 % (40-65) L 09/24/16 11:16 VBG Base Excess 4.3 mmol/L (0.0-2.0) H 09/24/16 11:16 VBG Potassium 5.0 mmol/L (3.6-5.2) 09/24/16 11:16 A-a O2 Difference 62.0 mm/Hg 09/24/16 11:16 Sodium 131.0 mmol/L (132-148) L 09/24/16 11:16 Chloride 95.0 mmol/L (98-107) L 09/24/16 11:16 Glucose 523 mg/dL (65-105) H* 09/24/16 11:16 Lactate 1.3 mmol/L (0.7-2.1) 09/24/16 11:16 FiO2 21.0 % 09/24/16 11:16 Crit Value Called To Demi shoemaker rn 09/24/16 11:16 Crit Value Called By 15 09/24/16 11:16 Crit Value Read Back Y 09/24/16 11:16 Blood Gas Notified Time 1200 09/24/16 11:16 Sodium 138 mmol/l (132-148) 09/26/16 05:55 Potassium 4.8 MMOL/L (3.6-5.0) 09/26/16 05:55 Chloride 105 mmol/L (98-107) 09/26/16 05:55 Carbon Dioxide 27 mmol/L (22-30) 09/26/16 05:55 Anion Gap 11 (10-20) 09/26/16 05:55 BUN 18 mg/dl (7-17) H 09/26/16 05:55 Creatinine 1.0 mg/dL (0.7-1.2) 09/26/16 05:55 Est GFR ( Amer) > 60 09/26/16 05:55 Est GFR (Non-Af Amer) 52 09/26/16 05:55 POC Glucose (mg/dL) 228 mg/dL (65-110) H 09/26/16 10:50 Random Glucose 191 mg/dL (65-105) H 09/26/16 05:55 Hemoglobin A1c 15.6 % (4.2-6.5) H 09/24/16 20:18 Calcium 8.9 mg/dL (8.4-10.2) 09/26/16 05:55 Total Bilirubin 0.5 mg/dl (0.2-1.3) 09/26/16 05:55 AST 39 U/L (14-36) H 09/26/16 05:55 ALT 51 U/L (9-52) 09/26/16 05:55 Alkaline Phosphatase 270 U/L (38-126) H 09/26/16 05:55 Total Protein 7.4 G/DL (6.3-8.2) 09/26/16 05:55 Albumin 3.1 g/dL (3.5-5.0) L 09/26/16 05:55 Globulin 4.4 gm/dL (2.2-3.9) H 09/26/16 05:55 Albumin/Globulin Ratio 0.7 (1.0-2.1) L 09/26/16 05:55 Venous Blood Potassium 5.0 mmol/L (3.6-5.2) 09/24/16 11:16 Urine Color Yellow (YELLOW) 09/25/16 07:28 Urine Clarity Cloudy (Clear) 09/25/16 07:28 Urine pH 6.0 (5.0-8.0) 09/25/16 07:28 Ur Specific [place] 1.014 (1.003-1.030) 09/25/16 07:28 Urine Protein Negative mg/dL (NEGATIVE) 09/25/16 07:28 Urine Glucose (UA) >=500 mg/dL (Normal) 09/25/16 07:28 Urine Ketones Negative mg/dL (NEGATIVE) 09/25/16 07:28 Urine Blood Small (NEGATIVE) 09/25/16 07:28 Urine Nitrate Negative (NEGATIVE) 09/25/16 07:28 Urine Bilirubin Negative (NEGATIVE) 09/25/16 07:28 Urine Urobilinogen 0.2-1.0 mg/dL (0.2-1.0) 09/25/16 07:28 Ur Leukocyte Esterase Large Odalys/uL (Negative) 09/25/16 07:28 Urine RBC (Auto) 19 /hpf (0-3) H 09/25/16 07:28 Urine Microscopic WBC 64 /hpf (0-5) H 09/25/16 07:28 Ur Squamous Epith Cells 16 /hpf (0-5) H 09/25/16 07:28 Urine Bacteria Occ (<OCC) H 09/25/16 07:28 - Hospital Course Hospital Course: 89 YO F/ W/ h/o DM II, HTN presents to the ER w/ abscess of the right buttock and dizziness secondary to hypertension 1) Perirectal abscess and cellulitis - Attempted to drain at bedside in ER, but do to the pain unable to continue. Surgery has been consulted. - CT showed right parasagittal soft tissue swelling 3.8 x 2.1 cm AP within the subcutaneous tissue right medial buttock - NPO - Pain controlled w/ pain meds - I&D was preformed in OR by the surgery team and Patient tolerated the procedure well. - PT/PTT: 13.6/ 28.3 - Blood Culture: No growth - Wound culture: Showed positive for Staph Aureus - Vancomycin IVPB GIVEN in ER - Patient is being discharged w/ PO antibiotics and is advised to change the dressing daily and follow up with PMD in 2-[address] Medina in 10 days. 2) DM II insulin dependent - Glyburide 5mg BID, Levimir 10 unit SCHS, Junuvia 100mg Daily - Currently on insulin sliding scale - Hypoglycemia protocol in place - HBA1C was 15, despite taking medications as per patient. Patient has been advised to follow up with PMD and adjust medications if needed. 3) HTN - EKG : 2st degree AV block consistent with previous EKG - Restart Valsartan/HTZ 80/12.5 - Patient had a I& D in the OR and tolerated the procedure well. IT was initially packed now the packing has been removed and patient is being discharged home on PO antibiotics and pain medication. Has been advised to change dressing daily and follow up w/ Dr. Medina in 10 days. Discharge Exam - Head Exam Head Exam: ATRAUMATIC, NORMAL INSPECTION, NORMOCEPHALIC - Eye Exam Eye Exam: Normal appearance - ENT Exam ENT Exam: Mucous Membranes Moist - Respiratory Exam Respiratory Exam: Clear to PA & Lateral, NORMAL BREATHING PATTERN. absent: Rales, Rhonchi, Wheezes - Cardiovascular Exam Cardiovascular Exam: REGULAR RHYTHM, +S1, +S2 - GI/Abdominal Exam GI & Abdominal Exam: Normal Bowel Sounds, Soft. absent: Tenderness - Skin Additional comments: I&D site remains open and is draining. Blood seen, no pus noted Discharge Plan - Discharge Medications Prescriptions: Levofloxacin [Levaquin] 500 mg PO DAILY 10 Days Tramadol HCl [Ultram] 50 mg PO Q6 PRN #20 tablet PRN Reason: Pain, Moderate (4-7) - Follow Up Plan Condition: FAIR Disposition: HOME/ ROUTINE Instructions: Clindamycin (By mouth), Wound Infection (GEN) Additional Instructions: - Patient is advised to keep area clean and dry. Change dressing daily w/ 4x4 gauze. Prescription of levofloxacin has been given, take for 10 days. Take pain medication as needed Q6. Ambulate carefully. Follow up with your PMD in 2- 3 days. Follow up with surgery in 10 days to 2 weeks for post op visit. If patient develops any increase in pain, or discharge from the area or develops a fever, diarrhea, please return to the ER immediately. - Patient has been advised to follow up with her PMd regarding her DM II, her HBA1C is 15, despite patient claiming she takes her medication regularly. HAve advised her to follow up. Referrals: Christian Powell MD [Family Provider] - Poli Jackson MD [Staff Provider] - <Corinne Kessler - Last Filed: 10/05/16 08:15> Provider - Provider Date of Admission: 09/25/16 17:04 Attending physician: Isael Magana MD Hospital Course - Lab Results Lab Results: Micro Results 09/26/16 12:30 Urine,Clean Catch Urine Culture - Final No Growth (<1,000 CFU/ML) Most Recent Lab Values WBC 8.8 K/uL (4.8-10.8) 09/26/16 05:55 RBC 3.61 Mil/uL (3.80-5.20) L 09/26/16 05:55 Hgb 10.4 g/dL (12.0-16.0) L 09/26/16 05:55 Hct 32.6 % (34.0-47.0) L 09/26/16 05:55 MCV 90.1 fl (81.0-99.0) 09/26/16 05:55 MCH 28.9 pg (27.0-31.0) 09/26/16 05:55 MCHC 32.0 g/dL (33.0-37.0) L 09/26/16 05:55 RDW 14.6 % (11.5-14.5) H 09/26/16 05:55 Plt Count 146 K/uL (130-400) 09/26/16 05:55 MPV 9.7 fl (7.2-11.7) 09/26/16 05:55 Neut % (Auto) 70.9 % (50.0-75.0) 09/26/16 05:55 Lymph % (Auto) 20.3 % (20.0-40.0) 09/26/16 05:55 [place] % (Auto) 6.4 % (0.0-10.0) 09/26/16 05:55 Eos % (Auto) 1.8 % (0.0-4.0) 09/26/16 05:55 Baso % (Auto) 0.6 % (0.0-2.0) 09/26/16 05:55 Neut # 6.2 K/uL (1.8-7.0) 09/26/16 05:55 Lymph # 1.8 K/uL (1.0-4.3) 09/26/16 05:55 [place] # 0.6 K/uL (0.0-0.8) 09/26/16 05:55 Eos # 0.2 K/uL (0.0-0.7) 09/26/16 05:55 Baso # 0.1 K/uL (0.0-0.2) 09/26/16 05:55 PT 13.6 Seconds (9.8-13.1) H 09/24/16 20:18 INR 1.2 (0.9-1.2) 09/24/16 20:18 APTT 28.3 Seconds (25.6-37.1) 09/24/16 20:18 pO2 14 mm/Hg (30-55) L 09/24/16 11:16 VBG pH 7.34 (7.32-7.43) 09/24/16 11:16 VBG pCO2 59 mmHg (40-60) 09/24/16 11:16 VBG HCO3 26.1 mmol/L 09/24/16 11:16 VBG Total CO2 33.6 mmol/L (22-28) H 09/24/16 11:16 VBG O2 Sat (Calc) 20.5 % (40-65) L 09/24/16 11:16 VBG Base Excess 4.3 mmol/L (0.0-2.0) H 09/24/16 11:16 VBG Potassium 5.0 mmol/L (3.6-5.2) 09/24/16 11:16 A-a O2 Difference 62.0 mm/Hg 09/24/16 11:16 Sodium 131.0 mmol/L (132-148) L 09/24/16 11:16 Chloride 95.0 mmol/L (98-107) L 09/24/16 11:16 Glucose 523 mg/dL (65-105) H* 09/24/16 11:16 Lactate 1.3 mmol/L (0.7-2.1) 09/24/16 11:16 FiO2 21.0 % 09/24/16 11:16 Crit Value Called To Demi shoemaker rn 09/24/16 11:16 Crit Value Called By 15 09/24/16 11:16 Crit Value Read Back Y 09/24/16 11:16 Blood Gas Notified Time 1200 09/24/16 11:16 Sodium 138 mmol/l (132-148) 09/26/16 05:55 Potassium 4.8 MMOL/L (3.6-5.0) 09/26/16 05:55 Chloride 105 mmol/L (98-107) 09/26/16 05:55 Carbon Dioxide 27 mmol/L (22-30) 09/26/16 05:55 Anion Gap 11 (10-20) 09/26/16 05:55 BUN 18 mg/dl (7-17) H 09/26/16 05:55 Creatinine 1.0 mg/dL (0.7-1.2) 09/26/16 05:55 Est GFR ( Amer) > 60 09/26/16 05:55 Est GFR (Non-Af Amer) 52 09/26/16 05:55 POC Glucose (mg/dL) 228 mg/dL (65-110) H 09/26/16 10:50 Random Glucose 191 mg/dL (65-105) H 09/26/16 05:55 Hemoglobin A1c 15.6 % (4.2-6.5) H 09/24/16 20:18 Calcium 8.9 mg/dL (8.4-10.2) 09/26/16 05:55 Total Bilirubin 0.5 mg/dl (0.2-1.3) 09/26/16 05:55 AST 39 U/L (14-36) H 09/26/16 05:55 ALT 51 U/L (9-52) 09/26/16 05:55 Alkaline Phosphatase 270 U/L (38-126) H 09/26/16 05:55 Total Protein 7.4 G/DL (6.3-8.2) 09/26/16 05:55 Albumin 3.1 g/dL (3.5-5.0) L 09/26/16 05:55 Globulin 4.4 gm/dL (2.2-3.9) H 09/26/16 05:55 Albumin/Globulin Ratio 0.7 (1.0-2.1) L 09/26/16 05:55 Venous Blood Potassium 5.0 mmol/L (3.6-5.2) 09/24/16 11:16 Urine Color Yellow (YELLOW) 09/26/16 13:30 Urine Clarity Clear (Clear) 09/26/16 13:30 Urine pH 6.0 (5.0-8.0) 09/26/16 13:30 Ur Specific [place] 1.013 (1.003-1.030) 09/26/16 13:30 Urine Protein Negative mg/dL (NEGATIVE) 09/26/16 13:30 Urine Glucose (UA) 150 mg/dL (Normal) 09/26/16 13:30 Urine Ketones Negative mg/dL (NEGATIVE) 09/26/16 13:30 Urine Blood Negative (NEGATIVE) 09/26/16 13:30 Urine Nitrate Negative (NEGATIVE) 09/26/16 13:30 Urine Bilirubin Negative (NEGATIVE) 09/26/16 13:30 Urine Urobilinogen 0.2-1.0 mg/dL (0.2-1.0) 09/26/16 13:30 Ur Leukocyte Esterase Neg Odalys/uL (Negative) 09/26/16 13:30 Urine RBC (Auto) 1 /hpf (0-3) 09/26/16 13:30 Urine Microscopic WBC < 1 /hpf (0-5) 09/26/16 13:30 Ur Squamous Epith Cells < 1 /hpf (0-5) 09/26/16 13:30 Urine Bacteria Occ (<OCC) H 09/25/16 07:28 Attending/Attestation - Attestation I have personally seen and examined this patient.: Yes I have fully participated in the care of the patient.: Yes I have reviewed all pertinent clinical information, including history, physical exam and plan: Yes Notes (Text): 10/05/16 08:14 AGREE WITH FINDINGS AND PLAN ABOVE WITH RESIDENT DR. ZELAYA.
[2016-09-27 14:04] LABS: RBC URINE 1 /hpf (0-3); URINE BILIRUBIN NEGATIVE (NEGATIVE); URINE BLOOD NEGATIVE (NEGATIVE); URINE COLOR YELLOW (YELLOW); URINE GLUCOSE (UA) 150 mg/dL (Normal); URINE KETONE NEGATIVE (NEGATIVE); URINE LEUKOCYTE ESTERASE NEG Leu/uL (Negative); URINE PROTEIN NEGATIVE (NEGATIVE); URINE UROBILINOGEN 0.2-1.0 mg/dL (0.2-1.0); WBC URINE < 1 /hpf (0-5)
--- NOTE | 2016-11-02 08:29 | OP ---
PROCEDURE DATE: 09/25/2016 PREOPERATIVE DIAGNOSIS: Right perirectal abscess. POSTOPERATIVE DIAGNOSIS: Right perirectal abscess. PROCEDURE: Incision and drainage of right perirectal abscess. SURGEON: Poli Jackson MD REGIONAL OFFICE COORDINATOR: Jun. TYPE OF ANESTHESIA: General endotracheal intubation. IV FLUIDS: Crystalloids. ESTIMATED BLOOD LOSS: 10 mL INTRAOPERATIVE FINDINGS: Right perirectal abscess. BRIEF HISTORY: Mrs. Cervantes is a very pleasant 89-year-old female who presented to the hospital complaining of the pain to right gluteal area and upon further investigation was found to have right perirectal abscess. All the risks and benefits of the procedure were explained to the patient with the patient having a full understanding of all the risks and benefits involved, informed consent was obtained and the patient was taken to the operating room for above stated procedure. DESCRIPTION OF PROCEDURE: The patient was brought into the operating room and placed in lithotomy position and after successful induction of anesthesia and successful intubation by the anesthesia team, the patient's perineal area was prepped with Betadine and draped in the standard surgical fashion. Prior to the beginning of the procedure, time-out was called in the room when everyone in the room were in agreement. Using 11 blade scalpel knife approximately 1 cm incision was made on top of the fluctuant area and subsequent to that we were able to drain some purulent material. Wound cultures were obtained. The loculations were broken down bluntly dissection and subsequent to that the abscess cavity was copiously irrigated and dried and it was packed with iodoform packing. At the end of the procedure, incision site and perineal area were washed and dried and clean dressing with 4 x 4s and some tapes were applied to the incision site. The patient was successfully extubated by the anesthesia team, transferred to the stretcher, and taken to the recovery room in stable condition. At the end of the procedure, all instrument counts, needle, and sponges were correct. Poli Jackson MD
== END 2016-09-26 16:14 | disposition home or self-care (01) | DRG 346 ==
LOC: H.ER 10:27 → H.ERHOLD 13:39 → UNDOADMOB 13:39 → INTOOBSV 17:04 → OBSVTOIN 17:04 → H.MEDSURG1 17:52 → H.ERHOLD 17:52 → H.MEDSURG1 17:54 → OBSVTOIN 09-25 17:04
PROVIDERS: ADMIT Hospitalist; ATTEND Hospitalist
PROC: 0D9P0ZZ Drainage of Rectum, Open Approach (ICD-10-PCS; principal; 2016-09-25 10:30)
DX: K61.1 Rectal abscess (principal); E11.65 Type 2 diabetes mellitus with hyperglycemia; A49.01 Methicillin susceptible Staphylococcus aureus infection, unspecified site; Z88.0 Allergy status to penicillin; Z95.0 Presence of cardiac pacemaker; Z79.4 Long term (current) use of insulin; I10 Essential (primary) hypertension; E78.5 Hyperlipidemia, unspecified; I25.2 Old myocardial infarction; K29.70 Gastritis, unspecified, without bleeding; R42 Dizziness and giddiness